=== PATIENT | female | born 1970 | race Caucasian/White ===

== ENCOUNTER 2024-03-11 16:33 | Outpatient (OUT) | payer OTHER, SELFPAY ==
[2024-03-11 17:38] LABS: Free T3 2.37 pg/mL (2.18-3.98); Thyroid Stimulating Hormone 4.501 uIU/mL (0.358-3.740)
== END 2024-03-11 16:34 | disposition home or self-care (01) ==
LOC: LAB 16:39
PROVIDERS: PCP Family Medicine; Visit Provider Internal Medicine
DX: E04.2 Nontoxic multinodular goiter (principal)
CPT/HCPCS: 36415; 84439; 84443; 84481